=== PATIENT | female | born 1950 | race Caucasian/White ===

== ENCOUNTER 2023-09-25 14:12 | Emergency (ER) | payer OTHER ==
[~2023-09-25] VITALS: Ht 165.1 cm; Wt 66.9 kg
[2023-09-25 14:21] VITALS: BP 150/84; PULSE 93; TEMP 98.6; O2SAT 97
[2023-09-25 14:52] LABS: BILIRUBIN,URINE SMALL (Neg); CLARITY,URINE CLOUDY (Clear); COLOR,URINE YELLOW (Yellow); GLUCOSE, URINE NEGATIVE (Neg); KETONES,URINE >=80 mg/dl (Neg); LEUKOCYTE ESTERASE ,URINE NEGATIVE (Neg); NITRITES, URINE NEGATIVE (Neg); OCCULT BLOOD,URINE LARGE (Neg); PROTEIN,URINE TRACE mg/dl (Neg); UROBILINOGEN,URINE 0.2 E.U/dL (0.2-1.0)
[2023-09-25 14:58] LABS: UA COLLECTION TYPE CLN CATCH MIDSTREAM
[2023-09-25 15:01] LABS: MUCUS STRANDS FEW /LPF (Neg); RBC,URINE TNTC /HPF (0-2); SQUAMOUS EPITHELIAL CELL,UR MANY /LPF (FEW)
[2023-09-25 15:04] LABS: WBC CLUMPS,URINE FEW /HPF (NEGATIVE)
[2023-09-25 15:05] LABS: BACTERIA,URINE FEW /HPF (Neg); CAL OXALATE CRYSTALS 1+ /HPF (NEGATIVE); YEAST FEW /HPF (NEGATIVE)
[2023-09-25 15:07] VITALS: RESP 17
[2023-09-25] MEDS: morphine 4 MG/ML inj SYRINge IV ONE (15:07)
[2023-09-25] MEDS: ondansetron/PF 4mg/2ml inj IV ONE (15:08)
[2023-09-25 15:15] LABS: BASOPHILS % (AUTO) 0.4 % (0-1); EOSINOPHILS % (AUTO) 0 % (0-6); HEMATOCRIT 40.6 % (35.0-45.0); HEMOGLOBIN 13.7 g/dl (12.0-16.0); LYMPHOCYTES # (AUTO) 0.6 X10'3 (1.1-4.8); LYMPHOCYTES % (AUTO) 7.1 % (21-51); MEAN CORPUSCULAR HEMOGLOBIN 30.1 PG (27.0-31.0); MEAN CORPUSCULAR HGB CONC 33.8 g/dL (33.0-36.5); MEAN CORPUSCULAR VOLUME 89.3 FL (78-98); MEAN PLATELET VOLUME 8.7 FL (7.4-10.4); MONOCYTES # (AUTO) 0.4 X10'3 (0-0.9); MONOCYTES % (AUTO) 4.6 % (2-12); NEUTROPHILS # (AUTO) 7.2 X10'3 (1.8-7.7); NEUTROPHILS % (AUTO) 87.9 % (42-75); PLATELET COUNT 228 X10'3 (140-440); RED BLOOD COUNT 4.55 X10'6 (4.20-5.60); RED CELL DISTRIBUTION WIDTH 13.3 % (11.5-14.5); WHITE BLOOD COUNT 8.2 X10'3 (4.5-11.0)
[2023-09-25 15:31] LABS: ALANINE AMINOTRANSFERASE 25 U/L (12-78); ALBUMIN/GLOBULIN RATIO 1.1 (1.1-1.5); ALKALINE PHOSPHATASE 116 IU/L (46-116); ANION GAP 13 (8-16); ASPARTATE AMINO TRANSFERASE 20 U/L (10-37); BILIRUBIN,TOTAL 0.6 MG/DL (0.1-1.0); BLOOD UREA NITROGEN 18 MG/DL (7-18); BUN/CREATININE RATIO 15.5 (10.0-20.0); CHLORIDE 104 MMOL/L (99-107); CREATININE 1.16 MG/DL (0.40-0.90); GLUCOSE 127 MG/DL (70-104); LIPASE 30 U/L (16-77); POTASSIUM 4.1 MMOL/L (3.5-5.1); SODIUM 141 MMOL/L (135-145); TOTAL CARBON DIOXIDE 23.9 MMOL/L (24-32); TOTAL PROTEIN 7.5 G/DL (6.4-8.2); eCRCL 39 ML/MIN; eGFR 46 ML/MIN
[2023-09-25] MEDS ORDERED: iohexol 300mg/ml 100ml inj. ONE (15:51)
[2023-09-25] MEDS: CefTRIAXone 2gm/D5W 50ml BAG 50 ML IV ONE (17:20)
[2023-09-25] MEDS ORDERED: tamsulosin 0.4mg capsule PO SCH (17:35)
[2023-09-25] MEDS: tamsulosin 0.4mg capsule PO ONE (17:42)
[2023-09-25 18:23] LABS: BILIRUBIN,URINE SMALL (Neg); CLARITY,URINE CLOUDY (Clear); COLOR,URINE YELLOW (Yellow); GLUCOSE, URINE NEGATIVE (Neg); KETONES,URINE >=80 mg/dl (Neg); LEUKOCYTE ESTERASE ,URINE NEGATIVE (Neg); NITRITES, URINE NEGATIVE (Neg); OCCULT BLOOD,URINE LARGE (Neg); PH,URINE 5.5 (4.8-8.0); PROTEIN,URINE TRACE mg/dl (Neg); UROBILINOGEN,URINE 0.2 E.U/dL (0.2-1.0)
[2023-09-25 18:26] LABS: UA COLLECTION TYPE CLN CATCH MIDSTREAM
[2023-09-25 18:38] LABS: AMORPHOUS URATES 3+; BACTERIA,URINE 1+ /HPF (Neg); CAL OXALATE CRYSTALS 3+ /HPF (NEGATIVE); RBC,URINE 20-50 /HPF (0-2); SQUAMOUS EPITHELIAL CELL,UR FEW /LPF (FEW); WBC,URINE 0-4 /HPF (0-4)
[2023-09-25] MEDS ORDERED: FLO0.4C PO (19:12)
[2023-09-25] MEDS ORDERED: OXYC-145 PO (19:12)
[2023-09-25] MEDS ORDERED: ONDA4TAB12 PO (19:12)
[2023-09-25] MEDS: oxyCODONE/APAP 5-325mg tablet PO ONE (19:24)
== END 2023-09-25 19:26 | disposition home or self-care (01) ==
LOC: ER 14:13
DX: N20.1 Calculus of ureter (principal)
CPT/HCPCS: 36415; 74177; 80053; 81001; 83690; 85025; 96365; 96375; 99285; J0696; J2270; J2405; J3490; Q9967